=== PATIENT | male | born 1970 | race Caucasian/White ===

== ENCOUNTER 2018-12-11 21:43 | Emergency (ER) | payer MEDICAID ==
[2018-12-11] MEDS ORDERED: KETOROLAC 60 MG/2 ML VIAL IM STA (22:07)
--- NOTE | 2018-12-11 22:11 | Emergency Department Record ---
History of Present Illness - General Chief complaint: Pain Stated complaint: LT RIB PAIN Time Seen by Provider: 12/11/18 22:07 Source: Patient Mode of Arrival: Ambulatory Limitations: No limitations - History of Present Illness Initial comments: 48 yo male presents to ED for evaluation of pain to the left ribs. Patient reports that he was drinking alcohol 2 night ado, may have injured his chest but does not recall the mechanism. Patient reports pain with movement/palpation. Patient denies other injury, denies health problems at his baseline. MD Complaint: Other Onset/Timin -: Days(s) Location: Left History of Same: No Quality: Aching Consistency: Constant Improves with: Immobilization Worsens with: Palpation, Other (Movement) Associated Symptoms: Denies other symptoms - Related Data Previous Rx's Medication Instructions Recorded Azithromycin [Zithromax] 250 mg PO DAILY #5 tablet 12/11/18 Allergies Allergy/AdvReac Type Severity Reaction Status Date / Time No Known Drug Allergies Allergy Verified 12/11/18 21:49 Travel Screening - Travel/Exposure Within Last 30 Days Have you traveled within the last 30 days?: No - Travel Symptoms Symptom Screening: None Review of Systems Constitutional: Denies: Chills, Fever, Malaise, Night sweats Eyes: Denies: Eye discharge, Eye pain ENT: Denies: Congestion, Ear pain, Epistaxis Respiratory: Denies: Cough, Dyspnea Cardiovascular: Reports: Chest pain. Denies: Dyspnea on exertion, Paroxysmal nocturnal dyspnea Endocrine: Denies: Fatigue, Heat or cold intolerance Gastrointestinal: Denies: Abdominal pain, Nausea, Vomiting Genitourinary: Denies: Incontinence, Retention Musculoskeletal: Denies: Arthralgia, Back pain, Gout, Joint swelling Skin: Denies: Bruising, Change in color Neurological: Denies: Abnormal gait, Confusion, Headache, Seizure Psychiatric: Denies: Anxiety Hematological/Lymphatic: Denies: Anemia, Blood Clots Past Medical History - SOCIAL HISTORY Smoking Status: Never smoker Alcohol Use: Heavy Drug Use: None - RESPIRATORY Hx Respiratory Disorders: No - CARDIOVASCULAR Hx Cardio Disorders: Yes Hx Hypertension: Yes - NEURO Hx Neuro Disorders: Yes Comment:: Memory loss - GI Hx GI Disorders: Yes Hx of Polyps: Yes - Hx Genitourinary Disorders: No - ENDOCRINE Hx Endocrine Disorders: No - MUSCULOSKELETAL Hx Musculoskeletal Disorders: No - PSYCH Hx Psych Problems: Yes Hx Anxiety: Yes - HEMATOLOGY/ONCOLOGY Hx Hematology/Oncology Disorders: No Family Medical History Any Significant Family History?: Yes Family Hx Comment (NOT TO BE USED IN PLACE OF ITEMS BELOW): Father w/Parkinson's Hx Heart Disease: Grandparents Physical Exam - General General Appearance: Alert, Oriented x3, Cooperative, Moderate distress Limitations: No limitations - Head Head exam: Atraumatic, Normocephalic, Normal inspection Head exam detail: negative: Abrasion, Contusion, Conn's sign, General tenderness, Hematoma, Laceration - Eye Eye exam: Normal appearance. negative: Conjunctival injection, Periorbital swelling, Periorbital tenderness, Scleral icterus - ENT Ear exam: negative: Auricular hematoma, Auricular trauma Nasal Exam: negative: Active bleeding, Discharge, Dried blood, Foreign body Mouth exam: negative: Drooling, Laceration, Muffled voice, Tongue elevation - Neck Neck exam: Normal inspection. negative: Meningismus, Tenderness - Respiratory Respiratory exam: Normal lung sounds bilaterally, Chest wall tenderness (Symptoms are 100% reproducible with palpation of the left anterior lower ribs). negative: Rales, Respiratory distress, Rhonchi, Stridor - Cardiovascular Cardiovascular Exam: Regular rate, Normal rhythm, Normal heart sounds - GI/Abdominal GI/Abdominal exam: Soft. negative: Rebound, Rigid, Tenderness - Rectal Rectal exam: Deferred - exam: Deferred - Extremities Extremities exam: Normal inspection. negative: Pedal edema, Tenderness - Back Back exam: Denies: CVA tenderness (R), CVA tenderness (L) - Neurological Neurological exam: Alert, Normal gait, Oriented X3 - Psychiatric Psychiatric exam: Normal affect, Normal mood - Skin Skin exam: Normal color. negative: Abrasion Type of lesion: negative: abrasion Course Vital Signs 12/11/18 21:51 Temperature 98.6 F Pulse Rate [ 85 Left] Respiratory 16 Rate Blood Pressure 152/100 [Left Arm] Pulse Ox 100 - Reevaluation(s) Reevaluation #1: 12/11/18 22:46 CXR: Streaky atelectasis vs. infiltrate lingula Patient was updated in his result, he is standing in ROom #2 well appearing, pain well controlled. Patient appears stable for discharge at this time with treatment for probable contusion and possible CAP. Disposition Disposition: Discharge Clinical Impression: Contusion of rib on left side Qualifiers: Encounter type: initial encounter Qualified Code(s): S20.212A - Contusion of left front wall of thorax, initial encounter Disposition: Home, Self-Care Condition: (2) Stable Instructions: Rib Contusion (ED) Additional Instructions: Return to ED if your symptoms worsen or if you have any concerns. Jaffrey, Motrin 800 mg, and Zithromax as directed. Follow-up with Dr. Colindres in 3-5 days as directed. Prescriptions: Azithromycin [Zithromax] 250 mg PO DAILY #5 tablet Referrals: AISHA COLINDRES [Primary Care Provider] - Forms: Patient Portal Access Time of Disposition: 22:49 Quality - Quality Measures Quality Measures: N/A - Blood Pressure Screening Does Patient Have Any of the Following: No Blood Pressure Classification: Hypertensive Reading Systolic Measurement: 152 Diastolic Measurement: 100 Screening for High Blood Pressure: < First Hypertensive BP, F/U Documented > [G8950] First Hypertensive Follow-up Interventions: Referral to alternative/primary care provider.
[2018-12-11] MEDS ORDERED: AZITHROMYCIN 500 MG TABLET PO ONE (22:49)
[2018-12-11] MEDS ORDERED: HYDROCODONE/APAP 7.5/325MG TABLET PO ONE (22:49)
--- NOTE | 2018-12-12 22:17 | RADIOLOGY REPORT ---
EXAM: CHEST 2 VIEWS HISTORY: LEFT RIB PAIN, NO KNOWN INJURY. TECHNIQUE: PA and lateral views. COMPARISON: None. FINDINGS: Heart size is normal. Thoracic dextroscoliosis. Some minor streaky atelectasis or infiltrate in the lingula. Blunting of the left costophrenic angles by fluid or thickened pleura. There is some left apical pleural thickening as well. No pneumothorax evident. IMPRESSION: 1. THORACIC DEXTROSCOLIOSIS. 2. MINOR STREAKY ATELECTASIS OR INFILTRATE IN THE LING[place]A AT THE LEFT BASE ANTERIORLY. 3. BLUNTING OF THE LEFT COSTOPHRENIC ANGLES BY FLUID OR THICKENING PLEURA. JOB NUMBER: [id number] MTDD
== END 2018-12-11 23:02 | disposition home or self-care (01) ==
LOC: ER 21:43
DX: S20.212A Contusion of left front wall of thorax, initial encounter (principal); X58.XXXA Exposure to other specified factors, initial encounter; I10 Essential (primary) hypertension
CPT/HCPCS: 71046; 96372; 99283; 99284; J1885

== ENCOUNTER 2019-08-11 07:59 | Day surgery (SDC) | payer MEDICAID ==
[2019-08-11] MEDS ORDERED: PROPOFOL 10 MG/ML VIAL IV ONE (08:00)
[2019-08-11] MEDS ORDERED: LIDOCAINE 2% MDV (20MG/ML) 20ML VIAL IV ONE (08:00)
--- NOTE | 2019-08-14 14:10 | Operative Note ---
SURGEON: Hira Negro MD OPERATION: COLONOSCOPY. INDICATIONS: This is a 49-year-old male with history of colon polyps, last colonoscopy was about 2011, and now presented for repeat colonoscopy. POSTOPERATIVE DIAGNOSIS: Poor bowel preparation with solid stool in the rectal vault and sigmoid colon precluding completion of the colonoscopy. ANESTHESIA: Sedation is per Anesthesia. Pulse oximetry was monitored throughout the procedure to maintain O2 saturation of 90% or greater. Supplemental oxygen was administered via nasal cannula. Cardiac and vital signs were monitored throughout the duration of the procedure, and they were stable. The procedure of colonoscopy and risks and alternatives of the procedure, including the risk of bleeding and perforation, among others, were explained to the patient who voiced understanding and agreed to have the procedure done. Physical examination was performed, and the patient was found stable for sedation. PROCEDURE: The patient was placed in the left lateral position. Sedation was initiated. A digital rectal exam was performed and showed some mild external hemorrhoids with no palpable rectal masses. An Olympus PCF-180AL colonoscope was then inserted into the rectum under direct visualization. It was advanced into the sigmoid colon without any difficulty. The colonic mucosa was carefully examined upon introduction of the colonoscope. There was a large amount of solid stool debris in the rectal vault and the sigmoid colon, and the procedure was terminated because of the poor prep. RECOMMENDATIONS: 1. We will give the patient additional bowel preparation for 2 days and repeat the colonoscopy. 2. Further recommendations will be forthcoming with the results of the repeat colonoscopy. Thank you for allowing me to participate in the care of your patient. STAN
== END 2019-08-11 09:45 | disposition home or self-care (01) ==
LOC: HOP 07:59
PROVIDERS: ATTEND Internal Medicine Gastroenterology
DX: Z12.11 Encounter for screening for malignant neoplasm of colon (principal); Z86.010 Personal history of colon polyps; Z91.19 Patient's noncompliance with other medical treatment and regimen; I10 Essential (primary) hypertension; F41.9 Anxiety disorder, unspecified

== ENCOUNTER 2019-08-18 09:06 | Day surgery (SDC) | payer MEDICAID ==
[2019-08-18] MEDS ORDERED: LIDOCAINE 2% MDV (20MG/ML) 20ML VIAL IV ONE (09:07)
[2019-08-18] MEDS ORDERED: PROPOFOL 10 MG/ML VIAL IV ONE (09:07)
--- NOTE | 2019-08-25 10:51 | Operative Note ---
SURGEON: Hira Negro MD OPERATION: COLONOSCOPY. INDICATIONS: This is a 49-year-old male with average risk for colorectal cancer who had attempted colonoscopy about a week ago but had poor bowel preparation and re-presented today after 2-day bowel preparation for which he was not completely compliant and still has poor bowel preparation. Colonoscopy was limited to the transverse colon because of the solid stool debris in the colon. ANESTHESIA: Sedation is per Anesthesia. Pulse oximetry was monitored throughout the procedure to maintain O2 saturation of 90% or greater. Supplemental oxygen was administered via nasal cannula. Cardiac and vital signs were monitored throughout the duration of the procedure, and they were stable. The procedure of colonoscopy and risks and alternatives of the procedure, including the risk of bleeding and perforation, among others, were explained to the patient who voiced understanding and agreed to have the procedure done. Physical examination was performed, and the patient was found stable for sedation. PROCEDURE: The patient was placed in the left lateral position. Sedation was initiated. A digital rectal exam was performed and showed some mild external hemorrhoids with no palpable rectal masses. An Olympus PCF-180AL colonoscope was then inserted into the rectum under direct visualization. It was advanced to the transverse colon without difficulty. The colonic mucosa was carefully examined upon introduction of the colonoscope. There was a large amount of semi-liquid stool debris in the rectum and the sigmoid colon as well as the descending colon. In the transverse colon was a large amount of liquid mixed with solid stool that precluded further advancement of the colonoscope. The colonoscope was then withdrawn and the procedure was terminated. The patient tolerated the procedure well without any immediate complications. The patient remained with stable vital signs and was transferred to the recovery room. RECOMMENDATIONS: 1. We will educate patient about adequate bowel preparation. 2. We will give him another chance of 2-day bowel preparation and we will see him back as scheduled. Thank you for allowing me to participate in the care of your patient. STAN
== END 2019-08-18 11:14 | disposition home or self-care (01) ==
LOC: HOP 09:06
PROVIDERS: ATTEND Internal Medicine Gastroenterology
DX: Z12.11 Encounter for screening for malignant neoplasm of colon (principal); I10 Essential (primary) hypertension; G35 Multiple sclerosis; Z91.19 Patient's noncompliance with other medical treatment and regimen